=== PATIENT | male | born 1990 | race Caucasian/White ===

== ENCOUNTER 2020-12-02 11:04 | Outpatient (CLI) | payer BC ==
[2020-12-02 12:46] LABS: #Basophils 0.1 10x3/uL (0.0-0.2); #Eosinphils 0.3 10x3/uL (0.0-0.5); #Monocytes 0.8 10x3/uL (0.0-1.1); #Neutrophils 7.1 10x3/uL (1.5-8.4); %Basophils 0.4 % (0.0-2.0); %Eosinophils 2.1 % (0.0-6.0); %Lymphocytes 29.3 % (18.0-47.0); %Monocytes 6.7 % (0.0-10.0); Hemoglobin 15.7 g/dL (13.5-17.5); Mean Corpuscular HGB CONC 33.5 g/dL (32.0-36.0); Mean Corpuscular Hemoglobin 28.1 pg (27.0-33.0); Mean Corpuscular Volume 83.7 fl (81.2-95.1); Mean Platelet Volume 9.7 fl (7.4-10.4); Platelet Count 359 10x3/uL (150-450); RBC Distribution Width 13.1 % (11.5-14.5); Red Blood Cell (RBC) Count 5.59 10x6/uL (4.32-5.72); White Blood Cell (WBC) Count 11.7 10x3/uL (3.5-10.5)
[2020-12-02 13:20] LABS: Anion Gap 17 mmol/L (10-20); BUN (Urea Nitrogen) 10 mg/dL (8.9-20.6); Calc. Creatinine Clearance 0 mL/min (70-130); Calcium 10.2 mg/dL (7.8-10.44); Carbon Dioxide 25 mmol/L (22-29); Chloride 102 mmol/L (98-107); Glucose 84 mg/dL (70-105); Potassium 4.4 mmol/L (3.5-5.1); Sodium 140 mmol/L (136-145)
== END 2020-12-02 11:05 | disposition home or self-care (01) ==
LOC: LABBT 11:04
PROVIDERS: ATTEND Specialist
DX: Z01.812 Encounter for preprocedural laboratory examination (principal); K43.9 Ventral hernia without obstruction or gangrene
CPT/HCPCS: 80048; 85025

== ENCOUNTER 2020-12-05 07:08 | Day surgery (SDC) | payer BC ==
[2020-12-03 12:39] VITALS: BMI 38.0
[2020-12-05] MEDS ORDERED: Acetaminophen 500 MG TAB ONE (07:34)
[2020-12-05] MEDS ORDERED: Ketorolac Tromethamine 30 MG/ML VIAL ONE (07:34)
[2020-12-05] MEDS ORDERED: Lidocaine 1% w/Epinephrine 1:100K 20 ML VIAL ONE (09:16)
[2020-12-05] MEDS ORDERED: Bupivacaine 0.25% HCL 30 ML VIAL ONE (09:16)
[2020-12-05] MEDS ORDERED: Scopolamine 1.5 mg/72 hour Patch ONE (09:35)
[2020-12-05] MEDS ORDERED: Fentanyl 100 MCG/2 ML VIAL ONE ×5 (09:35→15:08)
[2020-12-05] MEDS ORDERED: HYDROmorphone 0.5 MG/0.5 ML SYRINGE ONE ×4 (13:38→14:21)
[2020-12-05] MEDS ORDERED: HYDROcodone/Acetaminophen 5/325 mg Tablet ONE (16:12)
== END 2020-12-05 18:17 | disposition home or self-care (01) ==
LOC: SDC 07:08
PROVIDERS: ATTEND Specialist
PROC: 0WUF4JZ Supplement Abdominal Wall with Synthetic Substitute, Percutaneous Endoscopic Approach (ICD-10-PCS; principal; 2020-12-05)
DX: K43.2 Incisional hernia without obstruction or gangrene (principal); E66.9 Obesity, unspecified; I10 Essential (primary) hypertension; G47.30 Sleep apnea, unspecified; K51.90 Ulcerative colitis, unspecified, without complications; G25.81 Restless legs syndrome; F17.220 Nicotine dependence, chewing tobacco, uncomplicated; Z68.38 Body mass index [BMI] 38.0-38.9, adult; Z88.1 Allergy status to other antibiotic agents
CPT/HCPCS: C1781; J0690; J1170; J1885; J3010; S0020

== ENCOUNTER 2023-12-28 08:09 | Outpatient (CLI) | payer BC | END 2023-12-28 08:10 | disposition home or self-care (01) | LOC: BICMRI 08:09 → SCSMRI 08:10 | PROVIDERS: ATTEND Internal Medicine Rheumatology | DX: M25.561 Pain in right knee (principal); R10.9 Unspecified abdominal pain; N13.30 Unspecified hydronephrosis; M25.861 Other specified joint disorders, right knee; N28.89 Other specified disorders of kidney and ureter | CPT/HCPCS: 76770 ==